=== PATIENT | female | born 1950 | race Caucasian/White ===

== ENCOUNTER 2017-03-13 05:53 | Inpatient (IN) | payer OTHER ==
[2017-03-13] MEDS ORDERED: ROPIVACAINE 0.2% 80 MG, EPINEPHrine 0.2 MG, KETOROLAC TROMETHAMINE 30 MG, morphINE 10 M... IU ONE (06:00)
[2017-03-13] MEDS ORDERED: TRANEXAMIC ACID 1,000 MG in NS 100 ML IV ONE ×2 (06:00)
[2017-03-13] MEDS ORDERED: DEXAMETHASONE 4 MG/ML VIAL IVP ONE (06:11)
[2017-03-13] MEDS ORDERED: FAMOTIDINE 20 MG TAB PO ONE (06:11)
[2017-03-13] MEDS ORDERED: ACETAMINOPHEN 325 MG TAB PO ONE (06:11)
[2017-03-13] MEDS ORDERED: ceFAZolin 2 GM/SWFI 2 GM/20 ML SYR IVP ONE (06:11)
[2017-03-13] MEDS ORDERED: LR 1,000 ML IV ONE (06:34)
[2017-03-13] MEDS ORDERED: LIDOCAINE 1% 2 ML INJ ID PRN (06:34)
[2017-03-13] MEDS ORDERED: LIDOCAINE 1% 2 ML INJ ONE (06:39)
[2017-03-13] MEDS ORDERED: ceFAZolin 1 GM/5 ML SYR ONE ×2 (06:51→06:54)
[2017-03-13] MEDS ORDERED: MIDAZOLAM 2 MG/2 ML VIAL IVP ONE (06:52)
--- NOTE | 2017-03-13 06:52 | PDANEPAE ---
ANE History of Present Illness 66 year old female for right total knee arthroplasty. ANE Past Medical History - Cardiovascular History Hx Hypertension: No Hx Arrhythmias: No Hx Chest Pain: No Hx Coronary Artery / Peripheral Vascular Disease: No Hx CHF / Valvular Disease: No Hx Palpitations: No - Pulmonary History Hx COPD: No Hx Asthma/Reactive Airway Disease: No Hx Recent Upper Respiratory Infection: No Hx Oxygen in Use at Home: No Hx Sleep Apnea: No Sleep Apnea Screening Result - Last Documented: Negative - Neurologic History Hx Cerebrovascular Accident: No Hx Seizures: No Hx Dementia: No - Endocrine History Hx Diabetes: No Hypothyroid: No Hyperthyroid: No Obesity: no - Renal History Hx Renal Disorders: No - Liver History Hx Hepatic Disorders: No - Neurological & Psychiatric Hx Hx Neurological and Psychiatric Disorders: Yes Neurological / Psychiatric History Comment: on Effexor for originally hot flashes and stays on Rx - Cancer History Hx Cancer: Yes Cancer History Comment: L breast w/chemo and radiation 2001 - Congenital Disorder History Hx Congenital Disorders: No - GI History GERD: no Hx Gastrointestinal Disorders: No - Other Health History Other Health History: OA R knee - Chronic Pain History Chronic Pain: Yes (RT KNEE/FOOT/SHLDR) - Surgical History Prior Surgeries: ORIF RT 5TH METATARSAL 12/06/2016. bilat cataract extractions w /IOL implants 2011. bilat ACL sx. L breast lumpectomy 2000. R shoulder sx ANE Review of Systems Review of systems is: negative Review of Systems: - Exercise capacity Exercise capacity: >=4 METS METS (RN): 4 METS ANE Patient History - Allergies Allergies/Adverse Reactions: erythromycin base [Erythromycin Base] Allergy (Intermediate, Verified 09/17/16 15:21) passed out/ hypotension - Home Medications Home medications: home medication list seen and reviewed Home Medications: Cholecalciferol Vit D3 [Vitamin D3 (*)] 1,000 units PO DAILY 09/18/16 [Last Taken 03/05/17] RX: Herbals/Supplements -Info Only 1 ea PO DAILY 09/18/16 [Last Taken 03/05/17] Venlafaxine Xr [Effexor Xr 75MG (*)] 75 mg PO DAILY 09/18/16 [Last Taken 05:00] - NPO status NPO Status: no food or drink >8 hours NPO Since - Liquids (Date): 03/12/17 NPO Since - Liquids (Time): 20:00 NPO Since - Solids (Date): 03/12/17 NPO Since - Solids (Time): 20:00 - Anes Hx Anes Hx: no prior problems - Smoking Hx Smoking Status: Former smoker - Alcohol Use Alcohol Use: Rarely - Family Anes Hx Family Anes Hx: neg - N/A ANE Labs/Vital Signs - Vital Signs Vital Signs: reviewed preoperatively; see RN documention for details Height: 162.56 cm Weight: 58.967 kg ANE Physical Exam - Airway Neck exam: FROM Mallampati Score: Class 2 Mouth exam: normal dental/mouth exam - Pulmonary Pulmonary: no respiratory distress - Cardiovascular Cardiovascular: regular rate and rhythym - ASA Status ASA Status: II ANE Anesthesia Plan Anesthesia Plan: MAC, spinal Regional Anesthesia: single shot NB, adductor canal FNB, POPC/PSR Total IV Anesthesia: No
--- NOTE | 2017-03-13 07:15 | PDHPUP ---
History & Physical Update H&P update statement: This history and physical update is based on an assessment of the patient which was completed after admission or registration (within 24 hours), but prior to the surgery/procedure. H&P update: H&P reviewed & patient examined, no change in patient's condition since H&P completed
[2017-03-13] MEDS ORDERED: fentaNYL 100 MCG/2 ML INJ ONE ×2 (07:18→09:59)
[2017-03-13] MEDS ORDERED: PROPOFOL 200 MG/20 ML VIAL ONE (07:18)
[2017-03-13] MEDS ORDERED: PHENYLEPHRINE HCL 100 MCG/ML SYR ONE (07:32)
[2017-03-13] MEDS ORDERED: ONDANSETRON 4 MG/2 ML VIAL ONE (07:36)
[2017-03-13] MEDS ORDERED: DEXAMETHASONE 4 MG/ML VIAL ONE (07:36)
[2017-03-13] MEDS ORDERED: LIDOCAINE 2% 5 ML SDV ONE (07:38)
[2017-03-13] MEDS ORDERED: ROCURONIUM 50 MG/5 ML VIAL ONE (07:38)
[2017-03-13] MEDS ORDERED: NALOXONE HCL 0.4 MG/ML INJ IVP PRN (08:16)
[2017-03-13] MEDS ORDERED: ONDANSETRON 4 MG/2 ML VIAL IVP PRN ×2 (08:16→09:39)
[2017-03-13] MEDS ORDERED: LR 500 ML IV PRN (08:16)
[2017-03-13] MEDS ORDERED: OXYCODONE/APAP 5/325 TAB PO PRN (08:16)
[2017-03-13] MEDS ORDERED: ROCURONIUM 100 MG/10 ML VIAL ONE (08:29)
[2017-03-13] MEDS ORDERED: ROPIVACAINE HCL 150 MG/30 ML INJ ONE (08:32)
[2017-03-13] MEDS ORDERED: SUGAMMADEX SODIUM 200 MG/2 ML VIAL IVP ONE (09:24)
[2017-03-13] MEDS ORDERED: TEMAZEPAM 15 MG CAP PO PRN (09:39)
[2017-03-13] MEDS ORDERED: diphenhydrAMINE 25 MG CAP PO PRN (09:39)
[2017-03-13] MEDS ORDERED: BISACODYL 10 MG SUPP PR PRN (09:39)
[2017-03-13] MEDS ORDERED: PROMETHAZINE HCL 25 MG SUPPR PR PRN (09:39)
[2017-03-13] MEDS ORDERED: LACTULOSE 20 GM/30 ML UDCUP PO PRN (09:39)
[2017-03-13] MEDS ORDERED: POLYETHYLENE GLYCOL 3350 17 GM PKT PO PRN (09:39)
[2017-03-13] MEDS ORDERED: traMADol 50 MG TAB PO PRN (09:39)
[2017-03-13] MEDS ORDERED: MAGNESIUM HYDROXIDE 30 ML UDCUP PO PRN (09:39)
[2017-03-13] MEDS ORDERED: ONDANSETRON DISINTEGRATING 4 MG TAB PO PRN (09:39)
[2017-03-13] MEDS ORDERED: DIPHENOXYLATE/ATROPINE LOMOTIL 1 TAB PO PRN (09:39)
[2017-03-13] MEDS ORDERED: PROMETHAZINE HCL 25 MG/ML INJ IVP PRN (09:39)
--- NOTE | 2017-03-13 09:45 | POSTOPPROG ---
Post Op Note Date of Operation: 03/13/17 Surgeon: Shalom Damon Farm Agent: Elyssa Gomes PA-C Anesthesiologist: Mike Anesthesia: GET(General Endotracheal) Pre-op Diagnosis: R knee osteoarthritis Post-op Diagnosis: R knee osteoarthritis Procedure: R TKA Findings: See full dictation Inf/Abcess present in the surg proc area at time of surgery?: No Depth: Organ Space EBL: 50-100
[2017-03-13] MEDS ORDERED: HYDROmorphONE/DILAUDID 1 MG/ML INJ ONE (09:59)
[2017-03-13] MEDS ORDERED: LR 1,000 ML IV SCH (10:00)
[2017-03-13] MEDS: fentaNYL 100 MCG/2 ML INJ IVP PRN ×2 (10:01→10:11)
[2017-03-13] MEDS: HYDROmorphONE/DILAUDID 1 MG/ML INJ IVP PRN ×2 (10:02→10:16)
[2017-03-13] MEDS: KETOROLAC 30 MG/1 ML SDV IVP PRN ×2 (11:04→17:24)
[2017-03-13] MEDS: CYCLOBENZAPRINE 10 MG TAB PO PRN (11:06)
[2017-03-13] MEDS: ACETAMINOPHEN 325 MG TAB PO SCH ×3 (11:06→22:49)
--- NOTE | 2017-03-13 11:36 | GOP ---
[f rep st] OPERATIVE REPORT DATE OF OPERATION: 03/13/2017 SURGEON: Shalom Damon MD ANESTHESIA: General. PREOPERATIVE DIAGNOSIS: Osteoarthritis, right knee, with valgus instability. POSTOPERATIVE DIAGNOSIS: Osteoarthritis, right knee, with valgus instability. PROCEDURE PERFORMED: Posterior stabilized custom total knee arthroplasty. FINDINGS: DESCRIPTION OF PROCEDURE: Patient taken to the operating room, administered general anesthesia, plac ed in the supine position. The right lower extremity was prepped and draped in normal sterile fashio n. Esmarch exsanguination was performed followed by elevation of thigh cuff to 275 mmHg pressure. M idline incision was made through dermal subcutaneous tissues. The medial parapatellar retinacular in cision was made. The patella was reflected. The patella was assessed for thickness. An 8 mm cut wa s made with the oscillating saw. Three drill lugs were drilled for the patellar button. A 32 mm pat omar was selected. The distal femur was exposed. The 2 drill lugs were drilled down to the subchond ral bone on the medial and lateral femoral condyles. The distal femoral cutting guide was put in pos ition and indexed off the subchondral bone. It was pinned proximally with 3 pins. Distal femoral cu t was made with the reciprocating saw initially as there was a step-off or a step cut. The oscillati ng saw was then used to make our distal femoral condylar cuts. This was assessed for flatness. We s ubsequently subluxed the tibia anteriorly. The medial and lateral meniscal structures and ACL remnan t were excised. The tibial chondral surface was denuded to the level of subchondral bone with a ring curette. The tibial guide was then placed. We positioned it appropriately. Our tibial cut was the n made with the oscillating saw. This was a 0 degree slope cut. The wafer of tibial bone was then r emoved. The flexion and extension gaps were assessed and felt to be slightly tight. We, therefore, made a little further cut on the tibial plateau, recessing another millimeter or so. The distal femu r was then exposed. Our distal femoral AP cutting guide was positioned. Our flexion gap was assesse d with the guide in place. It was rotated in the appropriate plane and pinned. AP cuts were then ma de followed by our anterior chamfer cuts. The 2 drill lugs were drilled for the femoral implant. Th e posterior chamfer cutting guide was then put in position. Our 2 posterior chamfer cuts were made. The posterior stabilized notch cuts were then made. The guide was put in position and pinned. A re ciprocating saw was used to make a reciprocating cut followed by our oscillating saw. This segment o f bone was removed from the notch. The PCL was released with it. The trial femoral implant was posi tioned. Small osteophytes were removed posteriorly with the curved osteotome. Trials were put in po sition. The knee was put through flexion and extension arc of motion. A rotational axis was assesse d and marked. The trials were brought out. A tibial tray was placed in the tibia and pin. The intr amedullary metaphyseal drill was passed down through this guide on the tray. We subsequently used ou r fin impaction device to impact our fin cut on the proximal tibia. Thorough lavage was performed of all surfaces. The cement mixing commenced. Our tibia was cemented into place followed by the femur followed by the patella. All excess cement was removed. A trial was done with a 6 mm poly insert. This fit appropriately. Thorough lavage was performed of all surfaces. The real poly insert was im pacted into position. Tourniquet was let down. Small bleeders were cauterized. A 2nd g of tranexam ic acid was administered. The deep and subcutaneous tissues were infiltrated with our cocktail solut ion. There was very little bleeding. A drain was not utilized. The retinaculum was closed with #1 Vicryl suture followed by closure of subcutaneous tissue with 2-0 Vicryl suture followed by closure o f the dermis with rosa. Sterile compression dressing applied. The patient tolerated procedure we ll, was transferred back to recovery room in stable condition. There were no operative complications . COMPLICATIONS: None. /[id number]/MODL
[2017-03-13] MEDS: oxyCODONE IR 5 MG TAB PO PRN ×2 (12:57→22:50)
[2017-03-13] MEDS: ceFAZolin 2 GM/DEXTROSE 100 ML IV SCH ×2 (12:57→20:10)
--- NOTE | 2017-03-13 15:05 | POSTANESTH ---
Post Anesthetic Evaluation Cardiovascular Status: Normal, Stable, Similar to Pre-Op Cond Respiratory Status: Normal, Stable, Similar to Pre-op Cond. Level of Consciousness/Mental Status: Can Participate in Eval, Alert and Oriented Pain Control: Adequate, Prn Tx Ordered Nausea/Vomiting Control: Adequate, Prn Tx Ordered Complications Possibly Related to Anesthesia: None Noted
[2017-03-13] MEDS: WARFARIN SODIUM 5 MG TAB PO SCH (17:20)
[2017-03-13] MEDS: SENNOSIDES/DOCUSATE SODIUM TAB PO SCH (20:10)
[2017-03-13] MEDS: FAMOTIDINE 20 MG TAB PO SCH (20:10)
[2017-03-14 05:03] LABS: HEMATOCRIT 32.5 % (38.0-47.0); HEMOGLOBIN 10.8 g/dL (12.6-16.3)
[2017-03-14 05:16] LABS: INR 1.32 (0.83-1.16); PROTIME(PATIENT) 16.4 SEC (12.0-15.0)
[2017-03-14] MEDS: ACETAMINOPHEN 325 MG TAB PO SCH ×3 (05:23→17:55)
[2017-03-14] MEDS: oxyCODONE IR 5 MG TAB PO PRN ×4 (05:24→22:14)
--- NOTE | 2017-03-14 08:36 | SOAPPROG ---
SOAP Progress Note Assessment/Plan: Assessment/Plan: POD#1 Right total knee arthroplasty WBAT RLE PT/OT Activity as tolerated Ice right knee/elevation STEVEN's/SCD DVT prophylaxis - warfarin Ortho stable Subjective: Pt is status post right total knee arthroplasty. She states her knee is feeling pretty well. Objective: Vital Signs Temp Pulse Resp BP Pulse Ox 36.8 C 73 15 94/56 L 98 03/14/17 07:50 03/14/17 07:50 03/14/17 07:50 03/14/17 07:50 03/14/17 07:50 Laboratory Results 03/14/17 04:25 03/13/17 03/14/17 03/15/17 05:59 05:59 05:59 Intake Total 3150 Output Total 1250 Balance 1900 PT 16.4 SEC (12.0-15.0) H 03/14/17 04:25 INR 1.32 (0.83-1.16) H 03/14/17 04:25 Physical exam of the right knee: dressings clean, dry and intact. Pt able to do a straight leg lift. Normal sensation to light touch in the RLE. Distal pulse present in the RLE. ICD10 Worksheet Patient Problems: Problems Problem Status Onset Osteoarthritis of right knee Acute - ICD10 Problem Qualifiers (1) Osteoarthritis of right knee
[2017-03-14] MEDS: SENNOSIDES/DOCUSATE SODIUM TAB PO SCH ×2 (08:58→21:06)
[2017-03-14] MEDS: FAMOTIDINE 20 MG TAB PO SCH ×2 (08:58→21:06)
[2017-03-14] MEDS: VENLAFAXINE XR 75 MG CAP PO SCH (08:58)
--- NOTE | 2017-03-14 14:00 | ASMTCMCOM ---
CM Note CM Note Notes: PT rec outpatient OT rec home. 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 ANticipate pt will d/c when medically stable. CM available for changes/needs. Date Signed: 03/14/2017 02:00 PM Electronically Signed By:PHILIP García
[2017-03-14] MEDS: WARFARIN SODIUM 5 MG TAB PO SCH (16:17)
[2017-03-15] MEDS: ACETAMINOPHEN 325 MG TAB PO SCH ×2 (00:08→06:31)
[2017-03-15] MEDS: oxyCODONE IR 5 MG TAB PO PRN ×3 (03:07→10:44)
[2017-03-15] MEDS: KETOROLAC 30 MG/1 ML SDV IVP PRN (03:08)
[2017-03-15 04:50] LABS: HEMATOCRIT 32.3 % (38.0-47.0); HEMOGLOBIN 10.4 g/dL (12.6-16.3)
[2017-03-15 05:18] LABS: INR 1.68 (0.83-1.16); PROTIME(PATIENT) 19.8 SEC (12.0-15.0)
--- NOTE | 2017-03-15 08:02 | SOAPPROG ---
SOJENA Progress Note Assessment/Plan: Assessment: Stable post op. Plan: DC home, PT set up twice week. F/U set up in 2 weeks 03/15/17 08:00 Subjective: Doing well. Pain controlled Objective: Vital Signs Temp Pulse Resp BP Pulse Ox 36.7 C 79 18 97/56 L 95 03/14/17 22:23 03/14/17 22:23 03/14/17 22:23 03/14/17 22:23 03/14/17 22:23 Laboratory Results 03/15/17 04:28 03/14/17 03/15/17 03/16/17 05:59 05:59 05:59 Intake Total 3150 750 Output Total 1250 Balance 1900 750 PT 19.8 SEC (12.0-15.0) H 03/15/17 04:28 INR 1.68 (0.83-1.16) H 03/15/17 04:28 VSS Csmt good Labs good ICD10 Worksheet Patient Problems: Problems Problem Status Onset Osteoarthritis of right knee Acute
[2017-03-15] MEDS: CYCLOBENZAPRINE 10 MG TAB PO PRN (08:23)
[2017-03-15 08:25] VITALS: BP 96/68; PULSE 83; RESP 16; TEMP 98.4; O2SAT 97
[2017-03-15] MEDS: FAMOTIDINE 20 MG TAB PO SCH (09:15)
[2017-03-15] MEDS: SENNOSIDES/DOCUSATE SODIUM TAB PO SCH (09:15)
[2017-03-15] MEDS: VENLAFAXINE XR 75 MG CAP PO SCH (09:16)
--- NOTE | 2017-03-15 12:10 | ASDISCHSUM ---
Discharge Information Plan Status:Home with No Needs Medically Cleared to Leave: Discharge Date:03/15/2017 11:59 AM CM D/C Disposition:Home, Routine, Self-Care ADT D/C Disposition:Home, Routine, Self-Care Projected Discharge Date:03/15/2017 11:59 AM Transportation at D/C: Discharge Delay Reason: Follow-Up Date:03/15/2017 11:59 AM Discharge Slot: Final Diagnosis: Placement Information Patient Contact Information Contact Name:MAYNOR Relationship: Address:[address] [place] City:[place] Alternate Phone: [facility]/Zip Code:[place] [address] Email: Financial Information Financial Class:Medicare Advantage Plans Primary Plan Desc:JULIA MEDICARE ADV Primary Plan Number:[id number] Secondary Plan Desc: Secondary Plan Number: Assessment Information 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 video CM Note CM Note Notes: Krysten is prepared for her surgery scheduled with Dr. Damon on March 13. She is planning to discharge home with her husbands care. Krysten has done physical therapy with a lady for past knee surgeries, so she has already scheduled her outpatient physical therapy with her again. She has not attended the Joint Class, so I will be sending her the online video link. Date Signed: 03/06/2017 12:19 PM Electronically Signed By:Karen Cortez [facility] CM Progress Note CM Note CM Note Notes: PT rec outpatient OT rec home. 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 ANticipate pt will d/c when medically stable. CM available for changes/needs. Date Signed: 03/14/2017 02:00 PM Electronically Signed By:PHILIP García Intervention Information
--- NOTE | 2017-03-17 20:53 | GDS ---
[f rep st] DISCHARGE SUMMARY PREOPERATIVE DIAGNOSES: Osteoarthritis of the right knee with valgus instability. POSTOPERATIVE DIAGNOSIS: Osteoarthritis of the right knee with valgus instability. PROCEDURE PERFORMED: Right total knee arthroplasty, posterior stabilized with custom ConforMIS impla nt. HISTORY OF PRESENT ILLNESS: The patient is a 66-year-old female who presented to the office with rad iograph confirmed evidence of tricompartmental osteoarthritis in the right knee. After discussion of treatment options with Dr. Damon, she has decided, once failing conservative treatment, to proceed w ith a ConforMIS total knee arthroplasty. HOSPITAL COURSE: The patient was admitted and placed on IV Ancef for antibiotic prophylaxis, and dm en to the operating room on 03/13/2017, whereupon she underwent a right knee posterior stabilized Con forMIS total knee arthroplasty performed by Dr. Damon. There were no intraoperative complications. The patient was consulted on by Physical Therapy and Occupational Therapy, as well as Case Management under her stay. Her hospital stay was otherwise uneventful. VTE mechanical prophylaxis was accompl ished with STEVEN stockings and sequential compression devices. Patient received warfarin for VTE chemo prophylaxis. The patient was discharged to home with appropriate scripts for outpatient physical the rapy, as well as postoperative PT/INR testing biweekly for warfarin dosing. Surgical incision appear ed to be healing well at the time of discharge. Again, the patient's hospital stay was otherwise une ventful. DISCHARGE INSTRUCTIONS: 1. Patient is instructed to keep her incision site clean and dry at all times, and to cover for bath ing purposes. She is discouraged from any soaking activities. 2. Patient is instructed to remain weightbearing as tolerated, with ambulation with the aid of shagufta tive devices as prescribed by Physical Therapy. 3. Patient is to continue her warfarin for VTE chemoprophylaxis, and dosing will be determined by [facility] office with biweekly PT/INR testing. 4. Patient is to follow up with Outpatient Physical Therapy. Prescription for these services was pr ovided for the patient at her preoperative visit. 5. Patient is to continue her STEVEN sock use for at least 14 days following surgery. 6. Patient is instructed to monitor her incision site for any signs of infection, including increase d redness, drainage, significant increase in pain or swelling, as well as constitutional symptoms suc h as fevers, chills, nausea, vomiting. She is also encouraged to monitor for any increased pain or s welling in the posterior calves or lower legs bilaterally. She is encouraged to contact the office s hould any of these occur. DISCHARGE MEDICATIONS: The patient is given a script for oxycodone 5 mg and is instructed to take 1- 2 tabs every 4 hours as needed for pain. She is also given a script for cyclobenzaprine 10 mg, and i s instructed to take 1 tab every 8 hours as needed for muscle spasms. She is encouraged to continue her home medications at their previously prescribed dosages as indicated in the discharge med rec. T he patient will follow up with Dr. Damon 10-14 days postoperatively, or sooner with any additional co ncerns or complaints. This appointment has previously been scheduled at the patient's preoperative vi sit. The patient is instructed to contact the office at [phone] any time with any questions or concerns. /[id number]/MODL
== END 2017-03-15 11:59 | disposition home or self-care (01) | DRG 470 ==
LOC: F3N 05:53
PROVIDERS: ADMIT Orthopaedic Surgery Sports Medicine; ATTEND Orthopaedic Surgery Sports Medicine
PROC: 0SRC0J9 Replacement of Right Knee Joint with Synthetic Substitute, Cemented, Open Approach (ICD-10-PCS; principal; 2017-03-13 07:15)
DX: M17.11 Unilateral primary osteoarthritis, right knee (principal); F41.9 Anxiety disorder, unspecified; F32.9 Major depressive disorder, single episode, unspecified; Z85.3 Personal history of malignant neoplasm of breast; Z87.891 Personal history of nicotine dependence
CPT/HCPCS: 97110-GP; 97116-GP; 97161-GP; 97165-GO; C1713; G8987-GO-CI; G8988-GO-CI; G8989-GO-CI; J0171; J0690; J1100; J1170; J1885; J2250; J2370; J2405; J2704; J2795; J3010

== ENCOUNTER → 2018-06-26 | Outpatient (CLI) | payer OTHER | LOC: FIMAGING 11:11 | PROVIDERS: ATTEND Family Medicine | DX: Z13.820 Encounter for screening for osteoporosis (principal); M81.0 Age-related osteoporosis without current pathological fracture; Z78.0 Asymptomatic menopausal state; Z85.3 Personal history of malignant neoplasm of breast ==